=== PATIENT | male | born 1980 | race African-American/Black ===

== ENCOUNTER 2018-09-13 00:40 | Emergency (ER) | payer MEDICAID ==
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
== END 2018-09-13 06:30 | disposition home or self-care (01) ==
LOC: ER 00:40
DX: F41.9 Anxiety disorder, unspecified (principal); M25.552 Pain in left hip; Z59.0 Homelessness; Z88.6 Allergy status to analgesic agent; Z90.49 Acquired absence of other specified parts of digestive tract
CPT/HCPCS: Z7502

== ENCOUNTER 2019-04-04 00:38 | Emergency (ER) | payer MEDICAID ==
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
== END 2019-04-04 06:21 | disposition home or self-care (01) ==
LOC: ER 00:38
DX: M54.5 Low back pain (principal); Z90.49 Acquired absence of other specified parts of digestive tract; Z98.890 Other specified postprocedural states; Z88.6 Allergy status to analgesic agent
CPT/HCPCS: Z7610